=== PATIENT | female | born 1980 | race Caucasian/White ===

== ENCOUNTER 2019-03-22 16:33 | Emergency (ER) | payer OTHER ==
[2019-03-22] MEDS ORDERED: ceFAZolin 1 GM in Premix Bag 1 BAG IV ONE (16:47)
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
[2019-03-22] MEDS ORDERED: HYDROmorphone 1 MG/ML Syringe IVPUSH ONE (17:08)
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
[2019-03-22] MEDS ORDERED: Bupivacaine 0.5% 50 ML MDV INFILT ONE (19:09)
== END 2019-03-22 17:50 | disposition other institution (70) ==
LOC: JP.ED 16:33
DX: S62.512B Displaced fracture of proximal phalanx of left thumb, initial encounter for open fracture (principal); W34.00XA Accidental discharge from unspecified firearms or gun, initial encounter
CPT/HCPCS: 64450; 73140; 96365; 96375; 99285; J0690; J1170; J3490